=== PATIENT | female | born 1965 | race Caucasian/White ===

== ENCOUNTER 2017-04-25 21:36 | Inpatient (IN) | payer BC ==
[~2017-04-25] VITALS: Ht 162.6 cm; Wt 87.2 kg
--- NOTE | 2017-04-25 21:42 | ED.ADGEN ---
Past History Past Medical History: Diabetes, Hypertension Smoking: Cigarettes Adult General Chief Complaint Chief Complaint ".. I ve been having some Lt. chest discomfort.. and Lt shoulder numbness. .. I am a [employer] over at [place]... and they sent me here to get checked out... I am diabetic.. HTN and do smoke.. So I got worried... 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 Pt. has seen [facility] in the past. Pt. presents with HTN 190/120s. Pt. has been compliant with her diabetic and hypertensive meds. No recent travel. Is exposed ill patients at [place]. Patient describes the pain as intermittent and rated between 2-5 out of 10. Discomfort seems to radiate into left shoulder and arm. 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 Patient does take a daily aspirin. Episodes of discomfort have been 5-15 minute episodes since about noon today. No history of trauma. No history of travel. No change in meds. Review of Systems Review of Systems Constitutional: Denies fever or chills [] Eyes: Denies change in visual acuity, redness, or eye pain [] HENT: Denies nasal congestion or sore throat [] Respiratory: Denies cough or shortness of breath [] Cardiovascular: No additional information not addressed in HPI [] GI: Denies abdominal pain, nausea, vomiting, bloody stools or diarrhea [] : Denies dysuria or hematuria [] Musculoskeletal: Denies back pain or joint pain [] Integument: Denies rash or skin lesions [] Neurologic: Denies headache, focal weakness or sensory changes [] Endocrine: Denies polyuria or polydipsia [] All other systems were reviewed and found to be within normal limits, except as documented in this note. Family History Family History Diabetes and hypertension Current Medications Current Medications Current Medications Medications (Trade) Dose Ordered Sig/Rupesh Start Time Stop Time Status Last Admin Dose Admin Aspirin (Chitra Aspirin) 325 mg 1X ONCE 04/25/17 22:00 04/25/17 22:02 DC 04/25/17 22:17 325 MG Magnesium Sulfate 50 ml @ 25 mls/hr 1X ONCE 04/25/17 23:30 04/26/17 01:29 DC 04/26/17 01:45 25 MLS/HR Morphine Sulfate (Morphine 2mg Syringe) 2 mg PRN Q2HR PRN 04/25/17 23:30 04/26/17 23:29 Nitroglycerin (Nitro-Bid Oint) 1 inch 1X ONCE 04/25/17 22:00 04/25/17 22:02 DC 04/25/17 22:17 1 INCH Ondansetron HCl (Zofran) 4 mg PRN Q4HRS PRN 04/25/17 23:30 04/26/17 23:29 Sodium Chloride 1,000 ml @ 1,000 mls/hr Q1H 04/25/17 22:00 04/25/17 22:59 DC 04/25/17 22:22 1,000 MLS/HR See nursing for home meds Allergies Allergies Allergies Coded Allergies Type Severity Reaction Last Updated Verified atorvastatin Allergy Unknown 04/25/17 Yes Physical Exam Physical Exam Constitutional: Moderately acute distress, non-toxic appearance. [] HENT: Normocephalic, atraumatic, bilateral external ears normal, oropharynx moist, no oral exudates, nose normal. [] Eyes: PERRLA, EOMI, conjunctiva normal, no discharge. [] Neck: Normal range of motion, no tenderness, supple, no stridor. [] Cardiovascular: Tachycardia Heart rate regular rhythm, no murmur [] Lungs & Thorax: Bilateral breath sounds equal at apex with scattered wheezes on auscultation [] Abdomen: Bowel sounds normal, soft, no tenderness, no masses, no pulsatile masses. Obese Skin: Warm, dry, no erythema, no rash. [] Back: No tenderness, no CVA tenderness. [] Extremities: No tenderness, no cyanosis, no clubbing, ROM intact, no edema. [] Neurologic: Alert and oriented X 3, normal motor function, normal sensory function, no focal deficits noted. [] Psychologic: Affect anxious, judgement normal, mood normal. [] Current Patient Data Vital Signs Vital Signs Date Time Temp Pulse Resp B/P (MAP) Pulse Ox O2 Delivery O2 Flow Rate FiO2 04/25/17 23:30 99 18 140/98 (112) 93 Room Air 04/25/17 21:42 97.5 Lab Results Laboratory Tests Test 04/25/17 22:05 04/25/17 22:10 Urine Collection Type Unknown Urine Color Yellow Urine Clarity Clear Urine pH 6.0 Urine Specific [place] 1.020 Urine Protein Neg (NEG-TRACE) Urine Glucose (UA) Neg mg/dL (NEG) Urine Ketones (Stick) Neg mg/dL (NEG) Urine Blood Neg (NEG) Urine Nitrite Neg (NEG) Urine Bilirubin Neg (NEG) Urine Urobilinogen Dipstick 0.2 mg/dL (0.2 mg/dL) Urine Leukocyte Esterase Neg (NEG) Urine RBC 1-2 /HPF (0-2) Urine WBC 1-4 /HPF (0-4) Urine Squamous Epithelial Cells Many /LPF Urine Bacteria 0 /HPF (0-FEW) Urine Mucus Slight /LPF Urine Opiates Screen Neg (NEG) Urine Methadone Screen Neg (NEG) Urine Barbiturates Neg (NEG) Urine Phencyclidine Screen Neg (NEG) Urine Amphetamine/Methamphetamine Neg (NEG) Urine Benzodiazepines Screen Neg (NEG) Urine Cocaine Screen Neg (NEG) Urine Cannabinoids Screen Neg (NEG) Urine Ethyl Alcohol Neg (NEG) White Blood Count 11.4 x10^3/uL (4.0-11.0) H Red Blood Count 5.11 x10^6/uL (3.50-5.40) Hemoglobin 15.7 g/dL (12.0-15.5) H Hematocrit 45.6 % (36.0-47.0) Mean Corpuscular Volume 89 fL (79-100) Mean Corpuscular Hemoglobin 31 pg (25-35) Mean Corpuscular Hemoglobin Concent 34 g/dL (31-37) Red Cell Distribution Width 12.4 % (11.5-14.5) Platelet Count 263 x10^3/uL (140-400) Neutrophils (%) (Auto) 53 % (31-73) Lymphocytes (%) (Auto) 35 % (24-48) Monocytes (%) (Auto) 7 % (0-9) Eosinophils (%) (Auto) 4 % (0-3) H Basophils (%) (Auto) 1 % (0-3) Neutrophils # (Auto) 6.1 x10^3uL (1.8-7.7) Lymphocytes # (Auto) 3.9 x10^3/uL (1.0-4.8) Monocytes # (Auto) 0.8 x10^3/uL (0.0-1.1) Eosinophils # (Auto) 0.4 x10^3/uL (0.0-0.7) Basophils # (Auto) 0.1 x10^3/uL (0.0-0.2) Prothrombin Time 10.7 SEC (9.4-11.4) Prothrombin Time INR 1.0 (0.9-1.1) PTT 22 SEC (23-33) L D-Dimer (Akila) 0.22 mg/L (0.00-0.50) Sodium Level 140 mmol/L (136-145) Potassium Level 3.7 mmol/L (3.5-5.1) Chloride Level 104 mmol/L (98-107) Carbon Dioxide Level 24 mmol/L (21-32) Anion Gap 12 (6-14) Blood Urea Nitrogen 10 mg/dL (7-20) Creatinine 0.7 mg/dL (0.6-1.0) Estimated GFR (Cockcroft-Gault) 87.9 Glucose Level 151 mg/dL (70-99) H Calcium Level 9.0 mg/dL (8.5-10.1) Magnesium Level 1.7 mg/dL (1.8-2.4) L Total Bilirubin 0.1 mg/dL (0.2-1.0) L Direct Bilirubin < 0.1 mg/dL (0.0-0.2) Aspartate Amino Transferase (AST) 66 U/L (15-37) H Alanine Aminotransferase (ALT) 113 U/L (14-59) H Alkaline Phosphatase 100 U/L (46-116) Creatine Kinase 69 U/L (26-192) Creatine Kinase MB (Mass) 0.6 ng/mL (0.0-3.6) Creatine Kinase MB Relative Index 0.9 % (0-4) Troponin I Quantitative < 0.017 ng/mL (0-0.055) BU-Dbf-P-Type Natriuretic Peptide 30 pg/mL (0-124) Total Protein 7.1 g/dL (6.4-8.2) Albumin 3.4 g/dL (3.4-5.0) Lipase 279 U/L (73-393) EKG EKG My interpretation EKG shows sinus tachycardia 108 bpm. There is some nonspecific inferior changes but no findings of acute STEMI with contralateral changes.[] Radiology/Procedures Radiology/Procedures I interpretation of chest x-ray shows some increased chronic findings consistent with COPD. No acute cardiopulmonary findings.[] Course & Med Decision Making Course & Med Decision Making Pertinent Labs and Imaging studies reviewed. (See chart for details) Discussed presentation, testing and treatment plan with - will admit for further tx. and evaluation. Cardiology consult in AM or sooner if + Trop or EKG changes. [] Final Impression Final Impression 1. Chest pain[] 2. Accelerated hypertension 3. Leukocytosis 4. DM 5. Hypomagnesium 6. Elevated AST/ALT Problems: Dragon Disclaimer Dragon Disclaimer This electronic medical record was generated, in whole or in part, using a voice recognition dictation system. SAUL JARAMILLO MD Apr 25, 2017 21:42
[2017-04-25] MEDS ORDERED: IV NORMAL SALINE 1,000ML 1,000 ML IV SCH (22:00)
[2017-04-25] MEDS ORDERED: NITROGLYCERIN OINT 1 GM PACKET. TP ONE (22:00)
[2017-04-25] MEDS ORDERED: ASPIRIN 325 MG TABLET PO ONE (22:00)
[2017-04-25 22:38] LABS: BASO # 0.1 x10^3/uL (0.0-0.2); BASO % 1 % (0-3); EOS # 0.4 x10^3/uL (0.0-0.7); EOS % 4 % (0-3); HEMATOCRIT 45.6 % (36.0-47.0); HEMOGLOBIN 15.7 g/dL (12.0-15.5); LYMPH # 3.9 x10^3/uL (1.0-4.8); LYMPH % 35 % (24-48); MEAN CORPUSCULAR HEMOGLOBIN 31 pg (25-35); MEAN CORPUSCULAR HGB CONC 34 g/dL (31-37); MEAN CORPUSCULAR VOLUME 89 fL (79-100); MONO # 0.8 x10^3/uL (0.0-1.1); MONO % 7 % (0-9); NEUT # 6.1 x10^3uL (1.8-7.7); NEUT % 53 % (31-73); PLATELET COUNT 263 x10^3/uL (140-400); RED BLOOD COUNT 5.11 x10^6/uL (3.50-5.40); RED CELL DISTRIBUTION WIDTH 12.4 % (11.5-14.5); WHITE BLOOD COUNT 11.4 x10^3/uL (4.0-11.0)
[2017-04-25 22:56] LABS: AMPHETAMINE/METHAMPHETAMINE NEG (NEG); BARBITURATES NEG (NEG); BENZODIAZEPINES NEG (NEG); CANNABINOIDS NEG (NEG); COCAINE NEG (NEG); METHADONE NEG (NEG); OPIATES NEG (NEG); PHENCYCLIDINE NEG (NEG)
[2017-04-25 22:59] LABS: ALBUMIN 3.4 g/dL (3.4-5.0); ALK PHOS 100 U/L (46-116); ALT (SGPT) 113 U/L (14-59); ANION GAP 12 (6-14); AST (SGOT) 66 U/L (15-37); BLOOD UREA NITROGEN 10 mg/dL (7-20); CARBON DIOXIDE 24 mmol/L (21-32); CHLORIDE 104 mmol/L (98-107); CREATININE 0.7 mg/dL (0.6-1.0); DIRECT BILIRUBIN < 0.1 mg/dL (0.0-0.2); GFR 87.9; GLUCOSE 151 mg/dL (70-99); LIPASE 279 U/L (73-393); MAGNESIUM 1.7 mg/dL (1.8-2.4); POTASSIUM 3.7 mmol/L (3.5-5.1); SODIUM 140 mmol/L (136-145); TOTAL BILIRUBIN 0.1 mg/dL (0.2-1.0); TOTAL PROTEIN 7.1 g/dL (6.4-8.2)
[2017-04-25 23:00] LABS: BACTERIA,URINE 0 /HPF (0-FEW); BILIRUBIN,URINE NEG (NEG); CLARITY,URINE CLEAR; COLOR,URINE YELLOW; GLUCOSE,URINE NEG (NEG); NITRITE,URINE NEG (NEG); SQUAMOUS EPITHELIAL CELL,UR MANY /LPF; UROBILINOGEN,URINE 0.2 mg/dL (0.2 mg/dL)
[2017-04-25] MEDS ORDERED: MORPHINE SULFATE 2 MG/ML DISP.SYRIN. IV PRN (23:30)
[2017-04-25] MEDS ORDERED: MAGNESIUM SULFATE 2GM 50 ML IV ONE (23:30)
[2017-04-25] MEDS ORDERED: ONDANSETRON PF 4 MG/2 ML VIAL. IV PRN (23:30)
--- NOTE | 2017-04-26 00:18 | NUR ---
Er report received from CIERRA Gonzalez.
--- NOTE | 2017-04-26 00:53 | EKG ---
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
[2017-04-26 01:09] VITALS: BP 142/79
[2017-04-26 01:10] VITALS: BP 142/79
--- NOTE | 2017-04-26 02:13 | NUR ---
ADMIT: Pt admitted to [facility] at @0150 following brief stay in ICU.
[2017-04-26] MEDS ORDERED: ASPI81TA50 PO (02:46)
[2017-04-26] MEDS ORDERED: EZET10TA18 PO (02:46)
[2017-04-26] MEDS ORDERED: METO25TA4 PO (02:46)
[2017-04-26] MEDS ORDERED: BUPR150T15 PO (02:46)
[2017-04-26] MEDS ORDERED: CALC-30 PO (02:46)
[2017-04-26] MEDS ORDERED: ACETAMINOPHEN 500 MG TABLET PO ONE (03:00)
[2017-04-26 04:12] LABS: BASO # 0.1 x10^3/uL (0.0-0.2); BASO % 1 % (0-3); EOS # 0.5 x10^3/uL (0.0-0.7); EOS % 4 % (0-3); HEMATOCRIT 42.8 % (36.0-47.0); LYMPH # 3.7 x10^3/uL (1.0-4.8); LYMPH % 36 % (24-48); MEAN CORPUSCULAR HEMOGLOBIN 31 pg (25-35); MEAN CORPUSCULAR HGB CONC 35 g/dL (31-37); MEAN CORPUSCULAR VOLUME 89 fL (79-100); MONO # 0.8 x10^3/uL (0.0-1.1); MONO % 8 % (0-9); NEUT # 5.3 x10^3uL (1.8-7.7); NEUT % 51 % (31-73); PLATELET COUNT 234 x10^3/uL (140-400); RED BLOOD COUNT 4.79 x10^6/uL (3.50-5.40); RED CELL DISTRIBUTION WIDTH 12.2 % (11.5-14.5); WHITE BLOOD COUNT 10.3 x10^3/uL (4.0-11.0)
[2017-04-26 04:23] LABS: CALCIUM 8.5 mg/dL (8.5-10.1); CREATININE 0.6 mg/dL (0.6-1.0); POTASSIUM 4.1 mmol/L (3.5-5.1)
[2017-04-26] MEDS ORDERED: NITROGLYCERIN OINT 1 GM PACKET. TP SCH (06:00)
[2017-04-26 06:09] VITALS: BP 138/77
--- NOTE | 2017-04-26 07:49 | RAD ---
Chest radiograph 04/25/2017 11:42 PM Indication: Chest pain Comparison: None available Technique: PA and lateral views of the chest are provided. Findings: Cardiomediastinal silhouette is within normal limits. No pleural effusions, pulmonary vascular congestion or pneumothorax. The lungs are clear. Osseous structures are normal. Impression: No acute cardiopulmonary process. History
[2017-04-26] MEDS ORDERED: METOPROLOL TART IMMED RELEASE 25 MG TABLET PO SCH (09:00)
[2017-04-26] MEDS ORDERED: CALCIUM CARB/VIT D3 500/200 TABLET PO SCH (09:00)
[2017-04-26] MEDS ORDERED: EZETIMIBE 10 MG TABLET PO SCH (09:00)
[2017-04-26] MEDS ORDERED: buPROPion XL 150 MG TAB.ER.24H PO SCH (09:00)
[2017-04-26] MEDS ORDERED: ASPIRIN ENTERIC COATED 81 MG TABLET.DR. PO SCH (09:00)
--- NOTE | 2017-04-26 09:36 | NUR ---
AMA: During report this morning, patient turned on her call light and stated that she felt better and wanted to leave. She stated that she needed to smoke and wanted to leave. Patient was offered a nicotine patch but refused. Spoke with patient and explained to the patient that Dr. Mckeon would be rounding on patients very soon and asked if the patient would be willing to wait until she could be seen by the doctor. Patient stated that she wanted to go for a walk. Explained to the patient that if she needed to get out of the room, she could walk around the hospital but needed to stay inside d/t the telemetry monitoring and non-smoking policy. Patient agreed to wait until 8:[address] Mckeon. Patient seen by Dr. Mckeon and discussed plan of care. Patient requested to go outside and was warned that there are security cameras outside and that security would see if she was smoking. Patient decided to leave AMA. Paperwork signed by the patient and Dr. Mckeon and patient left the unit via ambulation. Security notified of AMA.
--- NOTE | 2017-04-26 13:42 | PDOC ---
PROGRESS NOTES Diagnosis Problem Problems Medical Problems: (1) Chest pain Status: Acute (2) Diabetes mellitus Status: Acute (3) Elevated amylase and lipase Status: Acute (4) Hypomagnesemia Status: Acute (5) Leukocytosis Status: Acute Assessment Problems Medical Problems: (1) Chest pain Status: Acute (2) Diabetes mellitus Status: Acute (3) Elevated amylase and lipase Status: Acute (4) Hypomagnesemia Status: Acute (5) Leukocytosis Status: Acute Subjective This is a brief progress note on Layla Taveras. This is a 51-year-old female who was admitted for chest pain. She declined to be seen by the radiologic therapist and would not stay to be evaluated. She wanted to go out and smoke. She opted to be discharged AMA & the paperwork. She states she will follow-up with her own radiologic therapist. She was strongly advised to stay but declined to do so. Objective Vital Signs Date Time Temp Pulse Resp B/P (MAP) Pulse Ox O2 Delivery O2 Flow Rate FiO2 04/26/17 06:09 97.6 82 20 138/77 (97) 95 Room Air Intake and Output 04/26/17 07:00 Intake Total 1000 ml Balance 1000 ml Intake Oral 0 ml IV Total 1000 ml Review of Relevant I have reviewed the following items reji (where applicable) has been applied. Labs Laboratory Tests Test 04/25/17 22:05 04/25/17 22:10 04/26/17 04:00 Urine Collection Type Unknown Urine Color Yellow Urine Clarity Clear Urine pH 6.0 Urine Specific [place] 1.020 Urine Protein Neg (NEG-TRACE) Urine Glucose (UA) Neg mg/dL (NEG) Urine Ketones (Stick) Neg mg/dL (NEG) Urine Blood Neg (NEG) Urine Nitrite Neg (NEG) Urine Bilirubin Neg (NEG) Urine Urobilinogen Dipstick 0.2 mg/dL (0.2 mg/dL) Urine Leukocyte Esterase Neg (NEG) Urine RBC 1-2 /HPF (0-2) Urine WBC 1-4 /HPF (0-4) Urine Squamous Epithelial Cells Many /LPF Urine Bacteria 0 /HPF (0-FEW) Urine Mucus Slight /LPF Urine Opiates Screen Neg (NEG) Urine Methadone Screen Neg (NEG) Urine Barbiturates Neg (NEG) Urine Phencyclidine Screen Neg (NEG) Urine Amphetamine/Methamphetamine Neg (NEG) Urine Benzodiazepines Screen Neg (NEG) Urine Cocaine Screen Neg (NEG) Urine Cannabinoids Screen Neg (NEG) Urine Ethyl Alcohol Neg (NEG) White Blood Count 11.4 x10^3/uL (4.0-11.0) 10.3 x10^3/uL (4.0-11.0) Red Blood Count 5.11 x10^6/uL (3.50-5.40) 4.79 x10^6/uL (3.50-5.40) Hemoglobin 15.7 g/dL (12.0-15.5) 15.0 g/dL (12.0-15.5) Hematocrit 45.6 % (36.0-47.0) 42.8 % (36.0-47.0) Mean Corpuscular Volume 89 fL (79-100) 89 fL (79-100) Mean Corpuscular Hemoglobin 31 pg (25-35) 31 pg (25-35) Mean Corpuscular Hemoglobin Concent 34 g/dL (31-37) 35 g/dL (31-37) Red Cell Distribution Width 12.4 % (11.5-14.5) 12.2 % (11.5-14.5) Platelet Count 263 x10^3/uL (140-400) 234 x10^3/uL (140-400) Neutrophils (%) (Auto) 53 % (31-73) 51 % (31-73) Lymphocytes (%) (Auto) 35 % (24-48) 36 % (24-48) Monocytes (%) (Auto) 7 % (0-9) 8 % (0-9) Eosinophils (%) (Auto) 4 % (0-3) 4 % (0-3) Basophils (%) (Auto) 1 % (0-3) 1 % (0-3) Neutrophils # (Auto) 6.1 x10^3uL (1.8-7.7) 5.3 x10^3uL (1.8-7.7) Lymphocytes # (Auto) 3.9 x10^3/uL (1.0-4.8) 3.7 x10^3/uL (1.0-4.8) Monocytes # (Auto) 0.8 x10^3/uL (0.0-1.1) 0.8 x10^3/uL (0.0-1.1) Eosinophils # (Auto) 0.4 x10^3/uL (0.0-0.7) 0.5 x10^3/uL (0.0-0.7) Basophils # (Auto) 0.1 x10^3/uL (0.0-0.2) 0.1 x10^3/uL (0.0-0.2) Prothrombin Time 10.7 SEC (9.4-11.4) Prothromb Time International Ratio 1.0 (0.9-1.1) Activated Partial Thromboplast Time 22 SEC (23-33) D-Dimer (Akila) 0.22 mg/L (0.00-0.50) Sodium Level 140 mmol/L (136-145) 142 mmol/L (136-145) Potassium Level 3.7 mmol/L (3.5-5.1) 4.1 mmol/L (3.5-5.1) Chloride Level 104 mmol/L (98-107) 107 mmol/L (98-107) Carbon Dioxide Level 24 mmol/L (21-32) 24 mmol/L (21-32) Anion Gap 12 (6-14) 11 (6-14) Blood Urea Nitrogen 10 mg/dL (7-20) 9 mg/dL (7-20) Creatinine 0.7 mg/dL (0.6-1.0) 0.6 mg/dL (0.6-1.0) Estimated GFR (Cockcroft-Gault) 87.9 105.0 Glucose Level 151 mg/dL (70-99) 107 mg/dL (70-99) Calcium Level 9.0 mg/dL (8.5-10.1) 8.5 mg/dL (8.5-10.1) Magnesium Level 1.7 mg/dL (1.8-2.4) Total Bilirubin 0.1 mg/dL (0.2-1.0) Direct Bilirubin < 0.1 mg/dL (0.0-0.2) Aspartate Amino Transf (AST/SGOT) 66 U/L (15-37) Alanine Aminotransferase (ALT/SGPT) 113 U/L (14-59) Alkaline Phosphatase 100 U/L (46-116) Creatine Kinase 69 U/L (26-192) Creatine Kinase MB (Mass) 0.6 ng/mL (0.0-3.6) Creatine Kinase MB Relative Index 0.9 % (0-4) Troponin I Quantitative < 0.017 ng/mL (0-0.055) < 0.017 ng/mL (0-0.055) CH-Zxk-Y-Type Natriuretic Peptide 30 pg/mL (0-124) Total Protein 7.1 g/dL (6.4-8.2) Albumin 3.4 g/dL (3.4-5.0) Lipase 279 U/L (73-393) Medications Current Medications Aspirin (Chitra Aspirin) 325 mg 1X ONCE PO Last administered on 04/25/17at 22:17 ; Start 04/25/17 at 22:00; Stop 04/25/17 at 22:02; Status DC Sodium Chloride 1,000 ml @ 1,000 mls/hr Q1H IV Last administered on 04/25/17at 22:22; Start 04/25/17 at 22:00; Stop 04/25/17 at 22:59; Status DC Nitroglycerin (Nitro-Bid Oint) 1 inch 1X ONCE TP Last administered on at 22:17; Start 04/25/17 at 22:00; Stop 04/25/17 at 22:02; Status DC Magnesium Sulfate 50 ml @ 25 mls/hr 1X ONCE IV Last administered on 04/26/17at 01:45; Start 04/25/17 at 23:30; Stop 04/26/17 at 01:29; Status DC Ondansetron HCl (Zofran) 4 mg PRN Q4HRS PRN IV NAUSEA/VOMITING; Start 04/25/17 at 23:30; Stop 04/26/17 at 09:45; Status DC Morphine Sulfate (Morphine 2mg Syringe) 2 mg PRN Q2HR PRN IV PAIN; Start at 23:30; Stop 04/26/17 at 09:45; Status DC Nitroglycerin (Nitro-Bid Oint) 1 inch Q8HRS TP Last administered on 04/26/17at 06 :04; Start 04/26/17 at 06:00; Stop 04/26/17 at 09:45; Status DC Acetaminophen (Tylenol) 1,000 mg 1X ONCE PO Last administered on 04/26/17at 02: 34; Start 04/26/17 at 03:00; Stop 04/26/17 at 03:02; Status DC Aspirin (Aspirin Enteric Coated) 81 mg DAILY PO ; Start 04/26/17 at 09:00; Stop 04/26/17 at 09:45; Status DC Bupropion HCl (Wellbutrin Xl) 150 mg DAILY PO ; Start 04/26/17 at 09:00; Stop 04/26/17 at 09:45; Status DC EZETIMIBE (Zetia) 10 mg DAILY PO ; Start 04/26/17 at 09:00; Stop 04/26/17 at 09:45 ; Status DC Metoprolol Tartrate (Lopressor) 25 mg DAILY PO ; Start 04/26/17 at 09:00; Stop at 09:45; Status DC Calcium/Vitamin D (Oscal D 500mg/ 200uts) 1 tab DAILY PO ; Start 04/26/17 at 09: 00; Stop 04/26/17 at 09:45; Status DC Active Scripts Active Reported Calcium 500 + Vit D 400 Tablet (Calcium Carbonate/Vitamin D3) 1 Each Tablet 1 Each PO DAILY Aspir-Low (Aspirin) 81 Mg Tablet.dr 81 Mg PO DAILY Metoprolol Tartrate 25 Mg Tablet 25 Mg PO DAILY Zetia (Ezetimibe) 10 Mg Tablet 10 Mg PO DAILY Wellbutrin Xl (Bupropion Hcl) 150 Mg Tab.er.24h 150 Mg PO DAILY Vitals/I & O Vital Sign - Last 24 Hours 04/25/17 04/25/17 04/25/17 04/25/17 21:42 22:00 22:17 22:30 Temp 97.5 Pulse 107 104 104 86 Resp 18 20 20 B/P (MAP) 168/94 (118) 168/94 164/92 (116) Pulse Ox 97 96 94 O2 Delivery Room Air Room Air Room Air 04/25/17 04/26/17 04/26/17 04/26/17 23:30 00:21 01:09 01:10 Temp 97.9 97.9 Pulse 99 92 113 113 Resp 18 18 20 20 B/P (MAP) 140/98 (112) 123/57 (79) 142/79 (100) 142/79 (100) Pulse Ox 93 96 97 97 O2 Delivery Room Air Room Air Room Air Room Air 04/26/17 04/26/17 06:04 06:09 Temp 97.6 Pulse 82 82 Resp 20 B/P (MAP) 138/77 138/77 (97) Pulse Ox 95 O2 Delivery Room Air Intake and Output 04/25/17 04/25/17 04/26/17 15:00 23:00 07:00 Intake Total 1000 ml Balance 1000 ml VENESSA WHATLEY Apr 26, 2017 13:42
[2017-04-27 10:09] LABS: HCV ANTIBODY <0.1 s/co ratio (0.0-0.9); HEP A IGM ABDY Negative (Negative)
== END 2017-04-26 08:10 | disposition left against medical advice (07) | DRG 313 ==
LOC: ER 21:36 → ICU 23:32 → 1 SOUTH 04-26 01:13
PROVIDERS: ADMIT Family Medicine; ATTEND Family Medicine
DX: R07.9 Chest pain, unspecified (principal); E11.40 Type 2 diabetes mellitus with diabetic neuropathy, unspecified; E83.42 Hypomagnesemia; D72.829 Elevated white blood cell count, unspecified; F17.210 Nicotine dependence, cigarettes, uncomplicated; Z53.21 Procedure and treatment not carried out due to patient leaving prior to being seen by health care provider; R74.8 Abnormal levels of other serum enzymes; I10 Essential (primary) hypertension; Z82.49 Family history of ischemic heart disease and other diseases of the circulatory system; Z83.3 Family history of diabetes mellitus; Z88.8 Allergy status to other drugs, medicaments and biological substances; Z79.82 Long term (current) use of aspirin; Z79.899 Other long term (current) drug therapy
CPT/HCPCS: 36415; 71046; 80048; 80074; 80076; 80307; 81001; 82553; 83690; 83735; 83880; 84443; 84484; 85025; 85379; 85610; 85730; 87641; 93005; 96360; G0238; J3475; 99285-25; G0479; J7030